=== PATIENT | female | born 1990 | race Hispanic/Latino ===

== ENCOUNTER 2019-01-16 12:49 | Emergency (ER) | payer OTHER ==
[~2019-01-16 12:49] MED LIST: MO6B PO
[2019-01-16 13:19] LABS: APPEARANCE,URINE Clear (CLEAR); BILIRUBIN,URINE Negative (NEGATIVE); COLOR,URINE Yellow (YELLOW); GLUCOSE, URINE (UA) Negative (NEGATIVE); KETONES,URINE Negative (NEGATIVE); LEUKOCYTE ESTERASE ,URINE Small (NEGATIVE); NITRATE,URINE Negative (NEGATIVE); OCCULT BLOOD,URINE Moderate (NEGATIVE); PH,URINE 5.5 (5.0-8.0); PROTEIN,URINE Trace mg/dL (NEGATIVE); UROBILINOGEN,URINE 0.2 mg/dL (0.2-1.0)
[2019-01-16 13:23] LABS: HCG,QUAL RESULT NEGATIVE (NEGATIVE)
[2019-01-16 13:36] LABS: BACTERIA,URINE Moderate /HPF (None Seen); RBC,URINE 0-1 /HPF (0-1)
== END 2019-01-16 13:59 | disposition home or self-care (01) ==
LOC: EDH 12:49
DX: R30.0 Dysuria (principal)
CPT/HCPCS: 81001; 81025

== ENCOUNTER 2020-12-10 02:28 | Emergency (ER) | payer OTHER ==
[~2020-12-10] VITALS: Ht 160 cm; Wt 99.3 kg
[~2020-12-10 02:28] MED LIST changes: +IBUP-2088 PO; -MO6B PO
[2020-12-10] MEDS ORDERED: AMOX-429 PO (03:49)
[2020-12-10] MEDS ORDERED: CORTSOL AD (03:49)
[2020-12-10] MEDS ORDERED: IBUPROFEN 600 MG TABLET PO ONE (04:00)
[2020-12-10] MEDS ORDERED: AMOX/CLAV 500/125MG TAB PO ONE (04:00)
[2020-12-10] MEDS ORDERED: NEOMYCIN/POLYMYXIN/HC OTIC SUSP 10ML BOTTLE AS SCH (04:00)
== END 2020-12-10 04:26 | disposition home or self-care (01) ==
LOC: EDH 02:28
DX: H60.92 Unspecified otitis externa, left ear (principal); H66.92 Otitis media, unspecified, left ear; Z79.1 Long term (current) use of non-steroidal anti-inflammatories (NSAID)

== ENCOUNTER 2021-01-17 13:20 | Emergency (ER) | payer SELFPAY ==
[~2021-01-17] VITALS: Ht 160 cm; Wt 99.8 kg
[~2021-01-17 13:20] MED LIST changes: +AMOX-429 PO; +CORTSOL AD
[2021-01-17 13:21] VITALS: BP 146/90
== END 2021-01-17 18:59 | disposition left against medical advice (07) ==
LOC: EDH 13:20
DX: R25.2 Cramp and spasm (principal); Z53.21 Procedure and treatment not carried out due to patient leaving prior to being seen by health care provider

== ENCOUNTER 2021-01-21 09:15 | Inpatient (IN) | payer OTHER ==
[~2021-01-21] VITALS: Ht 157.5 cm; Wt 91.6 kg
[2021-01-21 09:28] VITALS: BP 156/97
[2021-01-21 09:51] LABS: BASOPHILS % (AUTO) 0.5 % (0.0-5.0); EOSINOPHILS % (AUTO) 0.2 % (0.0-8.0); HEMATOCRIT 40.3 % (36-48); LYMPHOCYTES % (AUTO) 11.4 % (21.0-51.0); MEAN CORPUSCULAR HEMOGLOBIN 28.1 pg (27.0-33.0); MEAN CORPUSCULAR HGB CONC 32.8 g/dL (32.0-36.0); MEAN CORPUSCULAR VOLUME 85.9 fL (79-99); MONOCYTES % (AUTO) 7.9 % (3.0-13.0); NEUTROPHILS % (AUTO) 79.1 % (40.0-77.0); PLATELET COUNT (AUTO) 441 K/uL (130-400); RED BLOOD CELL COUNT(AUTO) 4.69 MIL/uL (4.00-5.50); RED CELL DISTRIBUTION WIDTH 13.1 % (11.0-15.5)
[2021-01-21 10:04] LABS: ALANINE AMINOTRANSFERASE 43 U/L (12-78); ALBUMIN 3.1 g/dL (3.5-5.0); AMYLASE 15 U/L (25-115); ASPARTATE AMINOTRANSFERASE 21 U/L (10-37); BILIRUBIN,TOTAL 0.5 mg/dL (0.2-1.0); CARBON DIOXIDE 28 mmol/L (21-32); CHLORIDE 103 mmol/L (101-111); CREATININE 0.8 mg/dL (0.5-1.5); GLOMERULAR FILTR. RATE CALC 90 mL/min (>60); GLUCOSE,RANDOM 128 mg/dL (70-105); POTASSIUM 3.8 mmol/L (3.5-5.1); SODIUM SERUM 140 mmol/L (136-145); TOTAL PROTEIN, SERUM 7.6 g/dL (6.0-8.3); UREA NITROGEN, BLOOD 7 mg/dL (7-18)
[2021-01-21 10:14] LABS: APPEARANCE,URINE Clear (CLEAR); BILIRUBIN,URINE Negative (NEGATIVE); COLOR,URINE Yellow (YELLOW); GLUCOSE, URINE (UA) Negative (NEGATIVE); KETONES,URINE Trace mg/dL (NEGATIVE); LEUKOCYTE ESTERASE ,URINE Trace (NEGATIVE); NITRATE,URINE Negative (NEGATIVE); OCCULT BLOOD,URINE Negative (NEGATIVE); PH,URINE 8.5 (5.0-8.0); PROTEIN,URINE Negative (NEGATIVE)
[2021-01-21 10:21] LABS: BACTERIA,URINE Rare /HPF (None Seen); RBC,URINE 0-1 /HPF (0-1); SQUAMOUS EPITHELIAL CELL,UR Rare /HPF (0-2); WBC,URINE 0-1 /HPF (0-1)
[2021-01-21] MEDS ORDERED: 0.9%NACL 1000ML 1,000 ML IV SCH (10:30)
[2021-01-21] MEDS ORDERED: ACETAMINOPHEN 325 MG TAB PO SCH (10:30)
[2021-01-21] MEDS ORDERED: KETOROLAC 30MG VIAL (30MG/ML) IV SCH (10:30)
[2021-01-21 10:31] LABS: LIPASE < 50 U/L (114-286)
[2021-01-21] MEDS ORDERED: IOHEXOL-350 75 ML VIAL IV ONE (12:17)
[2021-01-21] MEDS ORDERED: ZOSYN 3.375GM+NS 50ML 3.38 GM in 0.9%NACL 50ML 50 ML IV SCH (13:30)
[2021-01-21] MEDS ORDERED: 0.9%NACL 50ML 50 ML IV SCH (14:00)
[2021-01-21] MEDS: ZOSYN 3.375GM +NS 50ML IV SCH ×2 (14:11→21:55)
[2021-01-21] MEDS: 0.9%NACL 50ML 50 ML IV SCH ×2 (14:11→21:55)
[2021-01-21] MEDS ORDERED: ACETAMINOPHEN 325 MG TAB PO PRN ×2 (15:30)
[2021-01-21] MEDS ORDERED: ONDANSETRON 4MG INJ IV PRN (15:30)
[2021-01-21] MEDS ORDERED: MORPHINE 4 MG SYG IV ONE (15:30)
[2021-01-21] MEDS: 0.9%NACL 1000ML 1,000 ML IV SCH (16:48)
[2021-01-21 19:34] VITALS: BP 161/92
[2021-01-21] MEDS: MORPHINE 2 MG SYG IV PRN (19:54)
[2021-01-21] MEDS ORDERED: HYDROMORPHONE 1 MG INJ IVP PRN (20:00)
[2021-01-21] MEDS ORDERED: ZOSYN 3.375GM+NS 50ML 50 ML IV SCH (21:00)
[2021-01-21] MEDS: KETOROLAC 30MG VIAL (30MG/ML) IV SCH (21:04)
[2021-01-21 21:42] VITALS: BP 140/70
[2021-01-21 23:38] VITALS: BP 126/74
[2021-01-22] VITALS (10 sets, daily range): BP systolic 118–162; BP diastolic 67–96
[2021-01-22] MEDS: KETOROLAC 30MG VIAL (30MG/ML) IV SCH ×5 (02:03→20:51)
[2021-01-22] MEDS: 0.9%NACL 1000ML 1,000 ML IV SCH ×3 (02:03→21:38)
[2021-01-22] MEDS: MORPHINE 2 MG SYG IV PRN ×3 (04:36→15:01)
[2021-01-22] MEDS: ZOSYN 3.375GM +NS 50ML IV SCH ×3 (05:56→22:17)
[2021-01-22] MEDS: 0.9%NACL 50ML 50 ML IV SCH ×3 (05:56→22:17)
[2021-01-22 06:57] LABS: BASOPHILS % (AUTO) 0.5 % (0.0-5.0); EOSINOPHILS % (AUTO) 0.8 % (0.0-8.0); HEMATOCRIT 35.8 % (36-48); LYMPHOCYTES % (AUTO) 12.6 % (21.0-51.0); MEAN CORPUSCULAR HEMOGLOBIN 27.8 pg (27.0-33.0); MEAN CORPUSCULAR HGB CONC 32.1 g/dL (32.0-36.0); MEAN CORPUSCULAR VOLUME 86.7 fL (79-99); NEUTROPHILS % (AUTO) 77.1 % (40.0-77.0); PLATELET COUNT (AUTO) 408 K/uL (130-400); RED BLOOD CELL COUNT(AUTO) 4.13 MIL/uL (4.00-5.50); RED CELL DISTRIBUTION WIDTH 13.2 % (11.0-15.5); WHITE BLOOD COUNT (AUTO) 18.8 K/uL (4.8-10.8)
[2021-01-22 07:04] LABS: HEMOGLOBIN A1C 6.7 % (4.0-6.0)
[2021-01-22 07:09] LABS: ALBUMIN 2.7 g/dL (3.5-5.0); BILIRUBIN,TOTAL 0.5 mg/dL (0.2-1.0); CREATININE 0.8 mg/dL (0.5-1.5); POTASSIUM 3.7 mmol/L (3.5-5.1); TOTAL PROTEIN, SERUM 7.1 g/dL (6.0-8.3)
[2021-01-22 07:23] LABS: CRP QUANTITATIVE 181.6 mg/L (0.00-9.0)
[2021-01-23 01:04] VITALS: BP 150/65
[2021-01-23] MEDS: KETOROLAC 30MG VIAL (30MG/ML) IV SCH ×4 (02:12→22:00)
[2021-01-23 04:15] VITALS: BP 153/80
[2021-01-23] MEDS: ZOSYN 3.375GM +NS 50ML IV SCH ×3 (05:36→21:58)
[2021-01-23] MEDS: 0.9%NACL 50ML 50 ML IV SCH ×3 (05:37→21:58)
[2021-01-23 05:57] LABS: BASOPHILS % (AUTO) 0.7 % (0.0-5.0); EOSINOPHILS % (AUTO) 1.5 % (0.0-8.0); HEMATOCRIT 38.9 % (36-48); LYMPHOCYTES % (AUTO) 16.2 % (21.0-51.0); MEAN CORPUSCULAR HEMOGLOBIN 27.8 pg (27.0-33.0); MEAN CORPUSCULAR HGB CONC 31.6 g/dL (32.0-36.0); MEAN CORPUSCULAR VOLUME 87.8 fL (79-99); MONOCYTES % (AUTO) 8.6 % (3.0-13.0); NEUTROPHILS % (AUTO) 71.6 % (40.0-77.0); PLATELET COUNT (AUTO) 412 K/uL (130-400); RED BLOOD CELL COUNT(AUTO) 4.43 MIL/uL (4.00-5.50); RED CELL DISTRIBUTION WIDTH 13.2 % (11.0-15.5); WHITE BLOOD COUNT (AUTO) 16.4 K/uL (4.8-10.8)
[2021-01-23 06:27] LABS: ALBUMIN 2.7 g/dL (3.5-5.0); BILIRUBIN,TOTAL 0.6 mg/dL (0.2-1.0); CREATININE 0.8 mg/dL (0.5-1.5); MAGNESIUM 2.5 mg/dL (1.80-2.40); POTASSIUM 3.8 mmol/L (3.5-5.1); TOTAL PROTEIN, SERUM 7.5 g/dL (6.0-8.3)
[2021-01-23] MEDS: 0.9%NACL 1000ML 1,000 ML IV SCH ×2 (06:39→17:02)
[2021-01-23 06:59] LABS: CRP QUANTITATIVE 197.5 mg/L (0.00-9.0)
[2021-01-23 10:03] VITALS: BP 147/90
[2021-01-23 11:29] VITALS: BP 149/79
[2021-01-23 16:36] VITALS: BP 149/95
[2021-01-23 20:41] VITALS: BP 143/81
[2021-01-24 00:04] VITALS: BP 135/68
[2021-01-24] MEDS: KETOROLAC 30MG VIAL (30MG/ML) IV SCH ×4 (03:03→20:29)
[2021-01-24] MEDS: 0.9%NACL 1000ML 1,000 ML IV SCH ×3 (03:54→23:30)
[2021-01-24 04:00] VITALS: BP 145/81
[2021-01-24 05:32] LABS: BASOPHILS % (AUTO) 0.6 % (0.0-5.0); EOSINOPHILS % (AUTO) 1.3 % (0.0-8.0); HEMATOCRIT 37.5 % (36-48); LYMPHOCYTES % (AUTO) 14.6 % (21.0-51.0); MEAN CORPUSCULAR HEMOGLOBIN 27.9 pg (27.0-33.0); MEAN CORPUSCULAR HGB CONC 32.5 g/dL (32.0-36.0); MEAN CORPUSCULAR VOLUME 85.8 fL (79-99); MONOCYTES % (AUTO) 9.5 % (3.0-13.0); NEUTROPHILS % (AUTO) 72.5 % (40.0-77.0); PLATELET COUNT (AUTO) 448 K/uL (130-400); RED BLOOD CELL COUNT(AUTO) 4.37 MIL/uL (4.00-5.50); WHITE BLOOD COUNT (AUTO) 16.1 K/uL (4.8-10.8)
[2021-01-24] MEDS: ZOSYN 3.375GM +NS 50ML IV SCH ×3 (05:37→21:11)
[2021-01-24] MEDS: 0.9%NACL 50ML 50 ML IV SCH ×3 (05:37→21:11)
[2021-01-24 05:49] LABS: ALBUMIN 2.5 g/dL (3.5-5.0); BILIRUBIN,TOTAL 0.5 mg/dL (0.2-1.0); CREATININE 0.8 mg/dL (0.5-1.5); POTASSIUM 3.1 mmol/L (3.5-5.1); TOTAL PROTEIN, SERUM 7.2 g/dL (6.0-8.3)
[2021-01-24] MEDS ORDERED: LIDOCAINE HCL-MPF 1% 2ML VIAL ONE (06:21)
[2021-01-24] MEDS ORDERED: POTASSIUM CHLORIDE 20MEQ/100ML 100 ML IV ONE (06:22)
[2021-01-24] MEDS ORDERED: LIDOCAINE HCL-MPF 1% 2ML VIAL IV PRN (06:30)
[2021-01-24] MEDS ORDERED: POTASSIUM CHLORIDE 20MEQ/100ML 100 ML IV PRN (06:30)
[2021-01-24] MEDS ORDERED: POTASSIUM CHLORIDE 10% ELIXIR 20 MEQ/15 ML UDCUP PO PRN (06:30)
[2021-01-24 06:46] LABS: CRP QUANTITATIVE 177.2 mg/L (0.00-9.0)
[2021-01-24] MEDS ORDERED: DIATR MEGLU/DIATRIZOATE SODIUM 30 ML BOTTLE ONE (07:07)
[2021-01-24] MEDS ORDERED: IOHEXOL-350 75 ML VIAL IV ONE (07:07)
[2021-01-24 08:00] VITALS: BP 155/92
[2021-01-24 12:00] VITALS: BP 161/85
[2021-01-24 16:00] VITALS: BP 165/87
[2021-01-24] MEDS: KCL 20 MEQ ERTAB PO PRN ×2 (16:00→21:11)
[2021-01-24 19:59] VITALS: BP 162/83
[2021-01-25] VITALS (7 sets, daily range): BP systolic 132–168; BP diastolic 77–114
[2021-01-25] MEDS: KETOROLAC 30MG VIAL (30MG/ML) IV SCH ×6 (02:28→21:17)
[2021-01-25 04:27] LABS: BASOPHILS % (AUTO) 0.6 % (0.0-5.0); EOSINOPHILS % (AUTO) 1.2 % (0.0-8.0); HEMATOCRIT 34.9 % (36-48); LYMPHOCYTES % (AUTO) 15.4 % (21.0-51.0); MEAN CORPUSCULAR HEMOGLOBIN 27.8 pg (27.0-33.0); MEAN CORPUSCULAR HGB CONC 32.4 g/dL (32.0-36.0); NEUTROPHILS % (AUTO) 72.3 % (40.0-77.0); PLATELET COUNT (AUTO) 374 K/uL (130-400); RED BLOOD CELL COUNT(AUTO) 4.06 MIL/uL (4.00-5.50); WHITE BLOOD COUNT (AUTO) 17.8 K/uL (4.8-10.8)
[2021-01-25 04:42] LABS: ALBUMIN 2.3 g/dL (3.5-5.0); BILIRUBIN,TOTAL 0.4 mg/dL (0.2-1.0); CREATININE 0.7 mg/dL (0.5-1.5); POTASSIUM 3.8 mmol/L (3.5-5.1); TOTAL PROTEIN, SERUM 6.7 g/dL (6.0-8.3)
[2021-01-25 05:16] LABS: CRP QUANTITATIVE 256.8 mg/L (0.00-9.0)
[2021-01-25] MEDS: ZOSYN 3.375GM +NS 50ML IV SCH ×3 (05:28→21:18)
[2021-01-25] MEDS: 0.9%NACL 50ML 50 ML IV SCH ×3 (05:28→21:18)
[2021-01-25] MEDS: 0.9%NACL 1000ML 1,000 ML IV SCH ×2 (09:36→19:30)
[2021-01-25] MEDS ORDERED: AMLODIPINE 5 MG TAB ONE ×2 (17:41→21:14)
[2021-01-25] MEDS ORDERED: AMLODIPINE 5 MG TAB PO ONE (18:30)
[2021-01-26] MEDS: KETOROLAC 30MG VIAL (30MG/ML) IV SCH ×3 (02:00→14:00)
[2021-01-26 03:47] VITALS: BP 163/90
[2021-01-26 05:51] LABS: BASOPHILS % (AUTO) 0.7 % (0.0-5.0); EOSINOPHILS % (AUTO) 1.9 % (0.0-8.0); HEMATOCRIT 37.7 % (36-48); LYMPHOCYTES % (AUTO) 20.9 % (21.0-51.0); MEAN CORPUSCULAR HEMOGLOBIN 27.6 pg (27.0-33.0); MEAN CORPUSCULAR HGB CONC 32.6 g/dL (32.0-36.0); MEAN CORPUSCULAR VOLUME 84.5 fL (79-99); MONOCYTES % (AUTO) 6.3 % (3.0-13.0); NEUTROPHILS % (AUTO) 67.6 % (40.0-77.0); PLATELET COUNT (AUTO) 478 K/uL (130-400); RED BLOOD CELL COUNT(AUTO) 4.46 MIL/uL (4.00-5.50); RED CELL DISTRIBUTION WIDTH 13.2 % (11.0-15.5); WHITE BLOOD COUNT (AUTO) 13.2 K/uL (4.8-10.8)
[2021-01-26 06:20] LABS: CREATININE 0.7 mg/dL (0.5-1.5); POTASSIUM 3.2 mmol/L (3.5-5.1)
[2021-01-26] MEDS: ZOSYN 3.375GM +NS 50ML IV SCH ×3 (06:29→20:00)
[2021-01-26] MEDS: 0.9%NACL 50ML 50 ML IV SCH ×3 (06:29→20:00)
[2021-01-26 06:40] LABS: INR 1.12 (0.85-1.15); PROTHROMBIN TIME 12.1 SEC (9.6-11.6)
[2021-01-26 06:42] LABS: PARTIAL THROMBOPLASTIN TIME 25.2 SEC (26.3-35.5)
[2021-01-26 07:36] VITALS: BP 162/102
[2021-01-26] MEDS: AMLODIPINE 5 MG TAB PO SCH (08:19)
[2021-01-26] MEDS ORDERED: AMLODIPINE 5 MG TAB PO SCH (11:30)
[2021-01-26] MEDS ORDERED: HYDRALAZINE 20MG/ML VIAL IV PRN (11:30)
[2021-01-26] MEDS: 0.9%NACL 1000ML 1,000 ML IV SCH ×2 (11:39→15:30)
[2021-01-26 12:05] VITALS: BP 164/106
[2021-01-26 15:49] VITALS: BP 152/92
[2021-01-26 20:00] VITALS: BP 143/79
[2021-01-27] VITALS: BP 142/79
[2021-01-27 04:00] VITALS: BP 144/90
[2021-01-27] MEDS: 0.9%NACL 50ML 50 ML IV SCH ×3 (05:51→22:35)
[2021-01-27] MEDS: ZOSYN 3.375GM +NS 50ML IV SCH ×3 (05:51→22:35)
[2021-01-27 06:18] LABS: BASOPHILS % (AUTO) 1.1 % (0.0-5.0); EOSINOPHILS % (AUTO) 2.4 % (0.0-8.0); HEMATOCRIT 39.9 % (36-48); MEAN CORPUSCULAR HEMOGLOBIN 27.6 pg (27.0-33.0); MEAN CORPUSCULAR HGB CONC 32.3 g/dL (32.0-36.0); MEAN CORPUSCULAR VOLUME 85.4 fL (79-99); MONOCYTES % (AUTO) 6.7 % (3.0-13.0); NEUTROPHILS % (AUTO) 65.7 % (40.0-77.0); PLATELET COUNT (AUTO) 476 K/uL (130-400); RED BLOOD CELL COUNT(AUTO) 4.67 MIL/uL (4.00-5.50); RED CELL DISTRIBUTION WIDTH 13.2 % (11.0-15.5); WHITE BLOOD COUNT (AUTO) 11.5 K/uL (4.8-10.8)
[2021-01-27 06:42] LABS: CREATININE 0.7 mg/dL (0.5-1.5); CRP QUANTITATIVE 78.9 mg/L (0.00-9.0); POTASSIUM 3.1 mmol/L (3.5-5.1)
[2021-01-27 08:00] VITALS: BP_SYST 155; BP_SYST 97; BP_DIAS 62; BP_DIAS 85
[2021-01-27] MEDS: AMLODIPINE 5 MG TAB PO SCH (10:10)
[2021-01-27] MEDS: 0.9%NACL 1000ML 1,000 ML IV SCH ×2 (11:30→21:30)
[2021-01-27 12:00] VITALS: BP 132/85
[2021-01-27] MEDS: KCL 20 MEQ ERTAB PO PRN ×3 (14:32→20:17)
[2021-01-27 16:00] VITALS: BP 142/96
[2021-01-27 20:00] VITALS: BP 139/94
[2021-01-28] VITALS: BP 150/90
[2021-01-28 04:00] VITALS: BP 138/93
[2021-01-28] MEDS: ZOSYN 3.375GM +NS 50ML IV SCH ×2 (05:31→16:04)
[2021-01-28] MEDS: 0.9%NACL 1000ML 1,000 ML IV SCH (05:31)
[2021-01-28] MEDS: 0.9%NACL 50ML 50 ML IV SCH ×2 (05:31→16:04)
[2021-01-28 06:27] LABS: BASOPHILS % (AUTO) 0.9 % (0.0-5.0); EOSINOPHILS % (AUTO) 3.5 % (0.0-8.0); LYMPHOCYTES % (AUTO) 27.3 % (21.0-51.0); MEAN CORPUSCULAR HEMOGLOBIN 27.5 pg (27.0-33.0); MEAN CORPUSCULAR HGB CONC 32.6 g/dL (32.0-36.0); MEAN CORPUSCULAR VOLUME 84.4 fL (79-99); MONOCYTES % (AUTO) 6.9 % (3.0-13.0); PLATELET COUNT (AUTO) 477 K/uL (130-400); RED BLOOD CELL COUNT(AUTO) 4.62 MIL/uL (4.00-5.50); RED CELL DISTRIBUTION WIDTH 13.2 % (11.0-15.5); WHITE BLOOD COUNT (AUTO) 9.6 K/uL (4.8-10.8)
[2021-01-28 06:36] LABS: CREATININE 0.8 mg/dL (0.5-1.5); CRP QUANTITATIVE 43.4 mg/L (0.00-9.0); POTASSIUM 4.1 mmol/L (3.5-5.1)
[2021-01-28 08:00] VITALS: BP 159/92
[2021-01-28] MEDS: AMLODIPINE 5 MG TAB PO SCH (09:25)
[2021-01-28 12:00] VITALS: BP 139/92
[2021-01-28] MEDS ORDERED: DOCU-116 PO (14:37)
[2021-01-28] MEDS ORDERED: FLUC200T8 PO (14:37)
[2021-01-28] MEDS ORDERED: AMOX-429 PO (14:37)
[2021-01-28] MEDS ORDERED: AMLO5TAB4 PO (14:37)
[2021-01-28 16:00] VITALS: BP 134/99
== END 2021-01-28 18:25 | disposition home or self-care (01) | DRG 391 ==
LOC: EDH 09:15 → OBSVTOIN 15:47 → EDHIP 15:47 → 3CH 01-22 18:05
PROVIDERS: ADMIT Internal Medicine; ATTEND Internal Medicine
DX: K57.20 Diverticulitis of large intestine with perforation and abscess without bleeding (principal); K65.0 Generalized (acute) peritonitis; K65.1 Peritoneal abscess; E44.0 Moderate protein-calorie malnutrition; Z68.41 Body mass index [BMI] 40.0-44.9, adult; N39.0 Urinary tract infection, site not specified; K50.90 Crohn's disease, unspecified, without complications; E66.01 Morbid (severe) obesity due to excess calories; Z88.8 Allergy status to other drugs, medicaments and biological substances; Z83.3 Family history of diabetes mellitus; Z82.49 Family history of ischemic heart disease and other diseases of the circulatory system
CPT/HCPCS: 36415; 74177; 76857; 80048; 80053; 81001; 81025; 82150; 83036; 83605; 83690; 83735; 84100; 84145; 85025; 85610; 85651; 85730; 86140; 87040; 87077; 87088; 87186; G0378; J1885; J2270; J2543; J3480; J3490; J7030; Q9963; Q9967